=== PATIENT | female | born 1990 | race Hispanic/Latino ===

== ENCOUNTER 2018-11-25 09:35 | Inpatient (IN) | payer OTHER ==
--- OUTSIDE RECORDS SUMMARY | 2018-11-25 09:37 | XMS REPORT ---
:1990 Author Organization [employer] Care Team Providers Name Role Phone Fatimah Sin Provider Role Unavailable Allergies No Known Allergies Problems Problem Type Condition Code Onset Dates Condition Status Problem BMI 35.0-35.9,adult Z68.35 Active Problem care, subsequent Z34.82 Active in second trimester Problem care in second trimester Z34.92 Active Assessment care in second trimester Z34.92 Active Medications No Known Medications Results No Known Results Summary Purpose [employer] Submission
--- OUTSIDE RECORDS SUMMARY | 2018-11-25 09:37 | XMS REPORT ---
:1990 Author Organization [employer] Care Team Providers Name Role Phone See Dawkins Provider Role Unavailable Allergies No Known Allergies Problems Problem Type Condition Code Onset Dates Condition Status Problem BMI 35.0-35.9,adult Z68.35 Active Problem care, subsequent Z34.82 Active in second trimester Problem care in second trimester Z34.92 Active Assessment BMI 35.0-35.9,adult Z68.35 Active Assessment care in second trimester Z34.92 Active Medications No Known Medications Results No Known Results Summary Purpose [employer] Submission
--- OUTSIDE RECORDS SUMMARY | 2018-11-25 09:37 | XMS REPORT ---
:1990 Author Organization [employer] Care Team Providers Name Role Phone Fatimah Sin Provider Role Unavailable Allergies No Known Allergies Problems Problem Type Condition Code Onset Dates Condition Status Problem care, subsequent Z34.82 Active in second trimester Problem Encounter for supervision of other Z34.81 Active normal in first trimester Problem BMI 35.0-35.9,adult Z68.35 Active Assessment BMI 35.0-35.9,adult Z68.35 Active Assessment care, subsequent Z34.82 Active in second trimester Medications No Known Medications Results No Known Results Summary Purpose [employer] Submission
--- OUTSIDE RECORDS SUMMARY | 2018-11-25 09:37 | XMS REPORT ---
:1990 Author Organization [employer] Care Team Providers Name Role Phone Fatimah Sin Provider Role Unavailable Allergies No Known Allergies Problems Problem Type Condition Code Onset Dates Condition Status Problem BMI 35.0-35.9,adult Z68.35 Active Problem care, subsequent Z34.82 Active in second trimester Problem care in second trimester Z34.92 Active Medications No Known Medications Results No Known Results Summary Purpose [employer] Submission
--- OUTSIDE RECORDS SUMMARY | 2018-11-25 09:38 | XMS REPORT ---
:1990 Author Organization [employer] Care Team Providers Name Role Phone See Dawkins Provider Role Unavailable Allergies No Known Allergies Problems Problem Type Condition Code Onset Dates Condition Status Problem BMI 35.0-35.9,adult Z68.35 Active Problem care, subsequent Z34.82 Active in second trimester Assessment Gestational diabetes mellitus (GDM) O24.415 Active in third trimester controlled on oral hypoglycemic drug Assessment Supervision of high risk O09.93 Active in third trimester Problem Gestational diabetes mellitus (GDM) O24.415 Active in third trimester controlled on oral hypoglycemic drug Problem Gestational diabetes mellitus (GDM) O24.419 Active in third trimester, gestational diabetes method of control unspecified Problem Supervision of high risk O09.93 Active in third trimester Problem Supervision of high risk O09.92 Active in second trimester Problem care in second trimester Z34.92 Active Problem Abnormal glucose affecting O99.810 Active Problem Needs flu shot Z23 Active Medications Medication Code Code Instructions Start End Status Dosage System Date Date Ferralet 90 [facility] 54400097645 90-1 MG Orally Active 1 tablet Once a day Glucometer ND 0 n/s n/s use as Active one directed Lancets [facility] 71202782563 - four times a Active as directed day GlyBURIDE [facility] 31049655409 2.5 MG Orally Active 1 tablet Once a day with breakfast or the first main meal of the day Glucose [facility] [address]-06 n/s n/s Four Active n/s testing times a day strips Results No Known Results Immunizations Vaccine Administration Date TDAP > 7 Years-Adacel Nov 06, 2018 Summary Purpose [employer]ClinicalWorks Submission
--- OUTSIDE RECORDS SUMMARY | 2018-11-25 09:38 | XMS REPORT ---
[...] Start End Status Dosage System Date Date Lancets [facility] 59784767908 - four times a Active as directed day Ferralet 90 [facility] 36549996151 90-1 MG Orally Active 1 tablet Once a day Glucose [facility] [address]-31 n/s n/s Four Active n/s testing times a day strips Glucometer [facility] 0 n/s n/s use as Active one directed GlyBURIDE [facility] 40820314381 2.5 MG Orally Active 1 tablet Once a day with breakfast or the first main meal of the day Results No Known Results Summary Purpose [employer]Works Submission
--- OUTSIDE RECORDS SUMMARY | 2018-11-25 09:38 | XMS REPORT ---
:1990 Author Organization [employer] Care Team Providers Name Role Phone See Dawkins Provider Role Unavailable Allergies No Known Allergies Problems Problem Type Condition Code Onset Dates Condition Status Problem BMI 35.0-35.9,adult Z68.35 Active Problem care, subsequent Z34.82 Active in second trimester Problem Gestational diabetes mellitus (GDM) O24.415 [...] Problem Needs flu shot Z23 Active Medications No Known Medications Results No Known Results Summary Purpose [employer]ClinicalWorks Submission
--- OUTSIDE RECORDS SUMMARY | 2018-11-25 09:38 | XMS REPORT ---
[...] End Status Dosage System Date Date Lancets [facility] [id number] - four times a Active as directed day Ferralet 90 [facility] 71246060739 90-1 MG Orally Active 1 tablet Once a day Glucose [facility] [address]-35 n/s n/s Four Active n/s testing times a day strips Glucometer [facility] 0 n/s n/s use as Active one directed GlyBURIDE [facility] 90107415745 2.5 MG Orally Active 1 tablet Once a day with breakfast or the first main meal of the day Results No Known Results Summary Purpose [employer]ClinicalWorks Submission
[2018-11-25] MEDS ORDERED: CARBOPROST TROME 250 MCG/ML IM PRN (10:17)
[2018-11-25] MEDS ORDERED: METHYLERGONOVINE 0.2MG/ML AMP IM PRN (10:17)
[2018-11-25] MEDS ORDERED: Ringers Lactate 1,000 ML IV PRN (10:17)
[2018-11-25] MEDS ORDERED: LIDOCAINE 2% 20 ML MDV IV ONE (10:19)
[2018-11-25 10:49] LABS: RPR Titer ND
[2018-11-25 10:53] LABS: Absolute Monocytes 0.5 K/uL (0.1-1.3); Basophils % 0.3 % (0-1.3); Eosinophils % 0.4 % (0-4.4); Lymphocytes % 20.6 % (15.3-44.8); MPV 9.2 fL (7.6-11.3); Monocytes % 5.6 % (3.3-12.3); RBC Red Blood Cell Count 4.58 M/uL (3.86-4.86)
[2018-11-25] MEDS ORDERED: OXYTOCIN/LR 20 UNIT/1,000 ML BAG IV SCH (11:00)
[2018-11-25] MEDS ORDERED: Ringers Lactate 1,000 ML IV SCH (11:00)
[2018-11-25 14:07] VITALS: BMI 39.8
[2018-11-25] MEDS ORDERED: FENTANYL CITR 100 MCG/2 ML IV ONE (16:08)
[2018-11-25] MEDS ORDERED: ROPIVACAINE HCL 100 ML IV PRN (16:08)
[2018-11-25] MEDS ORDERED: ROPIVACAINE HCL 0.2% 20ML AMP SQ ONE (16:09)
[2018-11-25 20:53] LABS: RPR (Rapid Plasma Reagin) NON-REACT (NON-REACT)
[2018-11-25] MEDS ORDERED: DOCUSATE NA/SENNA CONC 1 TAB PO PRN (21:37)
[2018-11-25] MEDS ORDERED: METHYLERGONOVINE 0.2 MG TAB PO PRN (21:37)
[2018-11-25] MEDS ORDERED: BISACODYL 10 MG RECTAL SUPP RECT PRN (21:37)
[2018-11-25] MEDS ORDERED: ACETAMINOPHEN 500 MG TAB PO PRN (21:37)
[2018-11-25] MEDS ORDERED: ONDANSETRON 4 MG (ODT) TAB PO PRN (21:37)
[2018-11-25] MEDS ORDERED: Oxycodone HCl/Acetaminophen 1 TAB TAB PO PRN (21:37)
[2018-11-25] MEDS ORDERED: IBUPROFEN 200 MG TAB PO PRN (21:37)
--- NOTE | 2018-11-25 21:50 | P.OP ---
Date of Service: 11/25/18 Findings and Operative Technique Patient delivered a viable male in cephalic presentation on 11/25/18 at _ ____. was delivered over a midline episiotomy. Once the head was delivered shoulder dystocia was encountered. Ángel was performed. The posterior shoulder was then delivered. Once that was done the infant was delivered. Nose and mouth were suctioned with a suction bulb. Cord was clamped and cut and was handed off to nursery nurse. Attention was then turned to the placenta APGARS were 8/9. Weight was 9 lbs 10 ounces.
[2018-11-25] MEDS ORDERED: KETOROLAC 30 MG/ML INJ ONE (22:38)
[2018-11-26 04:52] LABS: Absolute Lymphocytes (CBC) 0.8 K/uL (0.7-4.9); Absolute Neutrophil 16.1 K/uL (1.8-8.0); Basophils % 0.2 % (0-1.3); Hematocrit 32.8 % (36.0-45.0); Lymphocytes % 4.4 % (15.3-44.8); MPV 9.6 fL (7.6-11.3); Monocytes % 5.7 % (3.3-12.3); RBC Red Blood Cell Count 4.16 M/uL (3.86-4.86)
[2018-11-26 05:14] LABS: Blood Morphology Comment NOT SEEN (NOT SEEN); Platelet Estimate ADEQ; Urine White Blood Cell Casts OK
--- NOTE | 2018-11-26 05:26 | HP ---
Date of Admission: 11/25/2018 History: Ana is a 28-year-old 2, para 1-0-0-1, at 39 weeks gestation, who presented to Lab or and Delivery with spontaneous rupture of membranes. The patient has been having watery discharge since last night. She presented to Labor and Delivery this morning, at which time she was found to b e grossly ruptured and was noted to be 2 cm dilated. The patient has obtained care with md beginning at 9 weeks gestation. She was seeing Dr. Sin prior to her departure. She has been compli ant with all visits. She has been a high-risk due to the development of gestation al diabetes and being obese with a BMI greater than 35. Her gestational diabetes has been controlled with 2.5 mg of glyburide at bedtime. She has been seeing an MFM for this as well. He rec ommended delivery at 39 weeks gestation. The patient was scheduled for induction of labor tomorrow; however, she presented in labor today. Past Medical History: Negative. Past Surgical History: Negative. [employer] History: Includes normal Pap smears. Regular menstrual cycles. No issues. Ob History: Includes 1 prior vaginal delivery. was 8 pounds 8 ounces. Family History: Noncontributory. Social History: She is with the father of the baby. Denies tobacco, alcohol, or drug use. Allergies: SHE HAS NO KNOWN DRUG ALLERGIES. Physical Examination: Vital Signs: On admission, blood pressure is 105/69, pulse of 83, respirations 18, temperature is 97 .7. General: Patient is resting comfortably in bed, in mild pain distress. Head and Neck: Normocephalic, atraumatic. Neck is supple. Heart: Regular rate and rhythm. Respirations: Symmetric, nonlabored breathing. Abdomen: Gravid. Extremities: Bilateral lower extremities, no clubbing, cyanosis, or edema. Vaginal Exam: 2-3 cm dilated, 50% effaced, -3 station. Vertex presentation. Clear fluid noted. [place] Heart Rate Monitoring: Baseline heart rate is 140, moderate variability, category 2 tracin g. [place]: Contractions every 3 to 5 minutes. Labs: Pending. Assessment And Plan: Ana is a 28-year-old 2, para 1-0-0-1, who presents at 39 weeks gestat ion in active labor. care is complicated by gestational diabetes, for which she has been ta heather glyburide. Plan is to admit the patient. Epidural placement at patient's request. We will beg in Pitocin for labor augmentation. Continuous maternal monitoring will be performed. We will re-evaluate fingersticks as necessary. Anticipate vaginal . GBS negative. Will not need penic illin. /ASUNCION Voice ID: [id number]
[2018-11-26] MEDS: Oxycodone HCl/Acetaminophen 1 TAB TAB PO PRN ×2 (05:50→23:30)
[2018-11-26] MEDS ORDERED: ACETAMINOPHEN 325 MG TABLET PO PRN (17:53)
[2018-11-26] MEDS: DOXYCYCLINE 100 MG CAP PO SCH (18:14)
[2018-11-26 18:24] LABS: Absolute Lymphocytes (CBC) 0.5 K/uL (0.7-4.9); Absolute Monocytes 0.4 K/uL (0.1-1.3); Absolute Neutrophil 11.6 K/uL (1.8-8.0); Basophils % 0.2 % (0-1.3); Hematocrit 32.8 % (36.0-45.0); Lymphocytes % 3.9 % (15.3-44.8); MPV 9.2 fL (7.6-11.3); Monocytes % 3.3 % (3.3-12.3); RBC Red Blood Cell Count 4.14 M/uL (3.86-4.86)
--- NOTE | 2018-11-26 22:01 | P.PN ---
Date of Service: 11/26/18 Patient seen and examined at bedside. States she is doing well. She was able to tolerate a regular diet this morning. Postprandial glucose level is pending. She is bonding well with the baby. She is breast feeding. Her pain is well managed. She states her bleeding is mild. She denies shortness of breath, no chills, no fever. Selected Entries 11/26/18 07:53 Temperature 98.3 F Pulse Rate 97 H Respiratory 16 Rate Blood Pressure 115/69 Pain Level 0 Laboratory Tests 11/26/18 04:05 WBC 18.0 H D Hgb 10.6 L Hct 32.8 L Plt Count 207 GEN: resting comfortably is bed with family at bedside. Head/Neck: NCAT/supple Heart: RRR Resp: symmetric non-labored breathing ABD: soft, non-tender, non-distended, fundus firm palpable below umbilicus. A/P: Patient is s/p vaginal delivery complicated by shoulder dystocia. care complicated by gestational diabetes. Patient is doing well. She is recovering well. Glucose level ordered. Will follow. Plan to discharge home in the morning.
[2018-11-27 04:28] LABS: HBsAG Nonreactive (Nonreactive)
[2018-11-27] MEDS: Oxycodone HCl/Acetaminophen 1 TAB TAB PO PRN (06:30)
[2018-11-27] MEDS: DOXYCYCLINE 100 MG CAP PO SCH (06:40)
[2018-11-27 08:53] VITALS: BP 121/74; TEMP 97.7
[2018-11-27] MEDS ORDERED: MEASLES,MUMPS,RUBELLA VAC 0.5ML SQVAC ONE (10:29)
== END 2018-11-27 11:35 | disposition home or self-care (01) | DRG 833 ==
LOC: L&D 09:35 → 2ND-WC 10:10
PROVIDERS: ADMIT Student in an Organized Health Care Education/Training Program; ATTEND Student in an Organized Health Care Education/Training Program
PROC: 0W8NXZZ Division of Female Perineum, External Approach (ICD-10-PCS; principal; 2018-11-25)
DX: O66.0 Obstructed labor due to shoulder dystocia (principal); O24.425 Gestational diabetes mellitus in childbirth, controlled by oral hypoglycemic drugs; O99.214 Obesity complicating childbirth; Z3A.39 39 weeks gestation of pregnancy; Z37.0 Single live birth
CPT/HCPCS: 36415; 82947; 82962; 85025; 86592; 86850; 86900; 86901; 87340; 88307; 90707; J2210; J2590; J2795; J3010

== ENCOUNTER 2020-06-18 12:24 | Emergency (ER) | payer OTHER ==
--- OUTSIDE RECORDS SUMMARY | 2020-06-18 13:00 | XMS REPORT | Clinical Summary ---
:1990 Author Organization [facility] Address [address] [place] [address] Care Team Providers Name Role Phone Asked, No Pcp Primary Care Provider Unavailable Allergies No Known Allergies Medications Medication Sig Dispensed Refills Start Date End Date Status doxylamine-pyridoxi Take 2 tablets 60 tablet 6 03/09/2020 Active ne, vit B6, by mouth (Diclegis) 10-10 mg nightly. tablet,delayed release (DR/EC) delayed release tablet famotidine (Pepcid) Take 1 tablet 30 tablet 11 04/08/202004/08 Active 40 MG tablet (40 mg total) 1 by mouth daily. nitrofurantoin 0 04/11/2020 Acti ve (MACRODANTIN) 100 MG capsule lancets Use as 100 each 1 05/25/2020 Active miscIndications: prescribed. Diet controlled gestational diabetes mellitus (GDM) in second trimester blood-glucose meter Use as 1 each 0 05/25/2020 Active kitIndications: instructed Diet controlled gestational diabetes mellitus (GDM) in second trimester blood sugar Use as directed 100 strip 1 05/25/2020 A ctive diagnostic strips (glucose blood) strip test stripsIndications: Diet controlled gestational diabetes mellitus (GDM) in second trimester nitrofurantoin, Take 1 capsule 14 capsule 0 03/11/2020 02 macrocrystal-monohy (100 mg total) 0 drate, (MACROBID) by mouth 2 100 MG capsule (two) times a day for 7 days. ondansetron ODT Take 1 tablet 30 tablet 0 04/08/2020 (ZOFRAN-ODT) 8 MG (8 mg total) by 0 disintegrating mouth every 8 tablet (eight) hours as needed for nausea or vomiting for up to 30 days. nitrofurantoin, Take 1 capsule 14 capsule 0 04/11/202004/18/ 02 macrocrystal-monohy (100 mg total) 0 drate, (MACROBID) by mouth 2 100 MG capsule (two) times a day for 7 days. Freestyle [employer] Test daily in 100 strip 3 05/06/2020 Discontinued strip test strips the morning and 0 2 hours after all 3 meals lancets (freestyle) Test daily in 100 each 2 05/06/202005/25 Discontinued 28 gauge misc the morning and 0 2 hours after all 3 meals. Active Problems Problem Noted Date Diet controlled gestational diabetes mellitus (GDM) in second trimester 05/06/2020 Estimated Date of Delivery Comments Yes 10/11/2020 Based on Ultrasound Encounters Date Type Specialty Care Team Description 06/03/2020 Routine Obstetrics and Ivory Eli GA: 21 w3d Sobeida Pratt MD 06/03/2020 Travel 06/03/2020 Orders Only Ivory Krishnamurthy MD 06/01/2020 Travel 05/31/2020 Telephone Ivory Krishnamurthy MD 05/27/2020 Telephone Ivory Krishnamurthy MD 05/25/2020 Orders Only Obstetrics Ivory Fair Diet contr olled Sobeida Pratt MD gestational diabetes mellit us (GDM) in second trimester (Prim john Dx) 05/06/2020 Telemedicine Obstetrics and Ivory Eli Normal pre gnancy in second trimester (Primary Dx); Sobeida Pratt MD Diet controlled gestational diabetes mellitus (GDM) in second trimester 05/06/2020 Telephone Obstetrics and Sakina Rice, Gynecology [place] 04/30/2020 Travel 04/20/2020 Telephone Obstetrics Sakina Nettles, care in Gynecology [place] second trimeste r (Primary Dx) 04/11/2020 Orders Only Ivory Krishnamurthy MD 04/08/2020 Routine Obstetrics and Ivory Eli GA: 13 w3d Sobeida Pratt MD 04/08/2020 Travel 04/07/2020 Telephone Ivory Krishnamurthy MD 04/05/2020 Orders Only Obstetrics and Ivory Eli MD 03/11/2020 Orders Only Obstetrics and Ivory Eli Gynecology MD [place] 03/09/2020 Ancillary Procedure Obstetrics and Ivory Eli Pos itive Gynecology MD [place] test 03/09/2020 Office Visit Obstetrics and Ivory Eli Missed men ses (Primary Dx); Gynecology MD [place] Positive pregna ncy test; Nausea; H/O gestational diabetes in prior , currently 03/09/2020 Travel 03/02/2020 Travel 03/02/2020 Telephone Obstetrics and Ivory Eli Gynecology MD [place] after 06/18/2019 Family History Medical History Relation Name Comments Breast cancer Neg Hx Ovarian cancer Neg Hx Social History Tobacco Use Types Packs/Day Years Used Date Never Smoker Smokeless Tobacco: Never Used Alcohol Use Drinks/Week oz/Week Comments Never Alcohol Habits Answer Date Recorded How often do you have a drink containing alcohol? Never 03/09/2020 How many drinks containing alcohol do you have on a typical Not asked day when you are drinking? How often do you have six or more drinks on one occasion? No t asked Estimated Date of Delivery Comments Yes 10/11/2020 Based on Ultrasound Sex Assigned at Date Recorded Not on file Job Start Date Occupation Industry Not on file Not on file Not on file Travel History Travel Start Travel End No recent travel history available. COVID-19 Exposure Response Date Recorded In the last month, have you been in contact with No / Unsure 06/03/2020 1:18 PM CDT someone who was confirmed or suspected to have Coronavirus / COVID-19? Last Filed Vital Signs Vital Sign Reading Time Taken Comments Blood Pressure 114/73 06/03/2020 2:07 PM CDT Pulse 81 03/09/2020 1:49 PM CDT Temperature - - Respiratory Rate - - Oxygen Saturation - - Inhaled Oxygen Concentration - - Weight 88.9 kg (196 lb) 06/03/2020 2:07 PM CDT Height 152.4 cm (5') 03/09/2020 1:49 PM CDT Body Mass Index 38.28 03/09/2020 1:49 PM CDT Plan of Treatment Date Type Specialty Care Team Description 07/01/2020 Routine Obstetrics and Ivory Eli MD [address] [facility] [address] [place], [place] [address] [phone] Health Maintenance Due Date Last Done Comments DIABETIC RETINAL EYE EXAM 1992 DIABETIC FOOT EXAM 02/18/2002 URINE MICROALBUMIN 02/18/2002 CERVICAL CANCER SCREENING 02/18/2013 INFLUENZA VACCINE 07/06/2020 09/02/2018 Procedures Procedure Name Priority Date/Time Associated Comments Diagnosis US OB DETAIL Routine 06/03/2020 Results f or this ANATOMY SINGLE OR procedure are in FIRST GESTATION the results section. MATERNAL SERUM SCREEN Routine 05/27/2020 12:18 Normal pregnanc y in Results for this AFP [facility] PM CDT second trimester procedure a re in the results section. GLUCOSE TOLERANCE, 3 Routine 04/23/2020 8:04 care in Results for this HOURS AM CDT second trimester procedure a re in the results section. GESTATIONAL DIABETES Routine 04/19/2020 9:49 care, R esults for this SCREEN AM CDT antepartum procedure are i n the results section. URINE CULTURE Routine 04/08/2020 1:39 care, Results for this PM CDT antepartum procedure are i n the results section. FIRST TRIMESTER Routine 04/05/2020 Results for this SCREEN procedure are i n the results section. MICROSCOPIC Routine 03/09/2020 4:15 Results for this EXAMINATION PM CDT procedure are i n the results section. URINALYSIS, AUTOMATED Routine 03/09/2020 4:15 Re sults for this WITH MICROSCOPY PM CDT procedure ar e in the results section. CHLAMYDIA/GC, [place] Routine 03/09/2020 4:15 Positive Results for this PM CDT test procedure are i n the results section. URINE CULTURE Routine 03/09/2020 4:15 Positive Resu lts for this PM CDT test procedure are i n the results section. T4, FREE Routine 03/09/2020 2:54 Positive Resul ts for this PM CDT test procedure are i n the results section. THYROID STIMULATING Routine 03/09/2020 2:54 Positive pregnanc y Results for this HORMONE PM CDT test procedure are i n the results section. HEMOGLOBIN A1C Routine 03/09/2020 2:54 Positive Res ults for this PM CDT test procedure are i n the results section. OBSTETRIC PANEL Routine 03/09/2020 2:54 Positive Re sults for this PM CDT test procedure are i n the results section. US PELVIC Routine 03/09/2020 2:04 Positive Resul ts for this TRANSVAGINAL PM CDT test procedure are i n the results section. after 06/18/2019 Results Ultrasound OB detail anatomy single or first gestation (06/03/2020) Narrative Performed At This result has an attachment that is no t available. Maternal serum screen AFP [facility] (05/27/2020 12:18 PM CDT) Results: Report [facility] Test Results *Screen Negative* [facility] Gest. Age on 20.0 weeks [facility] collection date Gest. age based on As provided [facility] Comment: Recalculations are not recommended when gestational da ting by LMP and ultrasound are within 10 days. [age] [facility] Maternal race Other [facility] Weight 191 lbs [facility] Insulin Dep Diabetes No [facility] Multiple gestation No [facility] Alpha fetoprotein 40.2 ng/mL [facility] Mom for AFP 0.84 [facility] OSBR Risk 10,000 [facility] AFP interpretation Comment [facility] Comment: Interpretation: Screen Negative This result is screen negative for OSB. The AFP MoM calculated is based on the gestational age provided. MS-AFP can i dentify up to 80% of open neural tube defects. Closed neural t ube defects and some open defects may not be detected by this test. Th is test does not screen for Down Syndrome or Trisomy 18. If s creening for Down Syndrome or Trisomy 18 is desired, contact [employer] Customer Services to discuss available options. The [employer] recommends amniocentes is be offered to women age 35 and older. Comment Comment [facility] Comment: Patrizia Farah, Ph.D., [facility] Director References: Available Upon Request. Multiples Of Median Cutoffs For AFP Elevations Crews 2.5 Black 2.8 IDD 2.0 Twins 4.5 Abbreviation Definitions IDD - Insulin Dep Diabetes OSBR - Open Spina Bifida Risk For further inquiries contact [employer] [facility] at [phone]. Specimen Blood Narrative Performed At Performed at: - [facility] [address] [facility], [place] [address] [id number] Radiagraph Operator: Ky Roman [facility], Phone: [phone] Performing Organization Address City/State/Zipcode Phone Number [facility] Glucose tolerance, 3 hours (04/23/2020 8:04 AM CDT) Glucose, fasting 84 65 - 94 mg/dL [facility] Glucose, 1 hour 186 (H) 65 - 179 mg/dL [facility] Glucose, 2 hour 164 (H) 65 - 154 mg/dL [facility] Glucose, 3 hour 105 65 - 139 mg/dL [facility] Note: Comment [facility] Comment: For diagnosis of gestational diabetes, at least two va lues must meet or exceed normal limits, which is based on 100 gm of o ral glucose challenge. Specimen Blood Narrative Performed At Performed at: [address] [place] [address] [id number] Radiagraph Operator: Lino Duarte MD, Phone: [phone] Performing Organization Address [facility] Phone Number [facility] Gestational Diabetes Screen (04/19/2020 9:49 AM CDT) Gestational 192 (H) 65 - 139 [facility] diabetes screen Comment: mg/dL According to ADA, a glucose threshold of >139 mg/dL af ter 50-gram load identifies approximately 80% of women with gestat ional diabetes mellitus, while the sensitivity is further in creased to approximately 90% by a threshold of >129 mg/dL. Specimen Blood Narrative Performed At Performed at: [address] [place] [address] [id number] Radiagraph Operator: Lino Duarte MD, Phone: [phone] Performing Organization Address [facility] Phone Number [facility] Urine culture (04/08/2020 1:39 PM CDT)Only the most recent of2 resultswithin the time period is included. Pathologist Sig nature Urine culture Enterococcus faecalis [facility] 50,000-100,000 colony forming units per mL (A) Comment: Note: this isolate is vancomycin-susceptible. This information is provided for epidemiologic purpose s only: vancomycin is not among the antibiotics recommended fo r therapy of urinary tract infections caused by Enterococcus. For Enterococcus species, aminoglycosides (except for high-level resistance screening), cephalosporins, clindamycin, an d trimethoprim-sulfamethoxazole are not effective clinic ally. (CLSI, [id number], 2016) Urine culture Escherichia coli [facility] 10,000-25,000 colony forming units per mL (A) Comment: Cefazolin <=4 ug/mL Cefazolin with an AMOL <=16 predicts susceptibility to the oral agents cefaclor, cefdinir, cefpodoxime, cefprozil, cefuroxime , cephalexin, and loracarbef when used for therapy of uncomplicated urinary tract infections due to E. coli, Klebsiella pneumoniae, and Proteus mirabilis. Specimen Urine Narrative Performed At Performed at: [address] [place] [address] 143 Radiagraph Operator: Lino Duarte MD, Phone: [phone] Organism Antibiotic Method Susceptibility Enterococcus faecalis Ciprofloxacin S ug/mL: S usceptible Enterococcus faecalis Levofloxacin S ug/mL: S usceptible Enterococcus faecalis Nitrofurantoin S ug/mL: S usceptible Enterococcus faecalis Penicillin S ug/mL: S usceptible Enterococcus faecalis Tetracycline R ug/mL: R esistant Enterococcus faecalis Vancomycin S ug/mL: S usceptible Comment: Performed at: [address] [place] [id number] Radiagraph Operator: Lino Duarte MD, Phone: [phone] Escherichia coli Amoxicillin/Clavulanate S ug/mL : Susceptible Escherichia coli Ampicillin R ug/mL: Resist ant Escherichia coli Cefepime S ug/mL: Suscep tible Escherichia coli Ceftriaxone S ug/mL: Suscep tible Escherichia coli Cefuroxime S ug/mL: Suscep tible Escherichia coli Ciprofloxacin S ug/mL: Suscep tible Escherichia coli Ertapenem S ug/mL: Suscep tible Escherichia coli Gentamicin S ug/mL: Suscep tible Escherichia coli Imipenem S ug/mL: Suscep tible Escherichia coli Levofloxacin S ug/mL: Suscep tible Escherichia coli Meropenem S ug/mL: Suscep tible Escherichia coli Nitrofurantoin S ug/mL: Suscep tible Escherichia coli Piperacillin/Tazobactam S ug/mL : Susceptible Escherichia coli Tetracycline S ug/mL: Suscep tible Escherichia coli Tobramycin S ug/mL: Suscep tible Escherichia coli Trimethoprim/Sulfamethoxazole S ug/mL: Susceptible Comment: Performed at: [address] [place] [address] 143 Radiagraph Operator: Lino Duarte MD, Phone: [phone] Performing Organization Address [facility] Phone Number [facility] First trimester screen (04/05/2020) Specimen Blood Narrative Performed At This result has an attachment that is no t available. Microscopic Examination (03/09/2020 4:15 PM CDT) Pathologist Sig nature WBC, UA None seen 0 - 5 /hpf [facility] RBC, UA 0-2 0 - 2 /hpf [facility] Epithelial cells (non 0-10 0 - 10 /hpf [facility] renal) Mucus, UA Present Not Estab. [facility] Bacteria, UA Few None seen/Few [facility] Specimen Narrative Performed At Performed at: - [address] [id number] Radiagraph Operator: Lino Duarte MD, Phone: [phone] Performing Organization Address [facility] Phone Number [facility] Chlamydia/GC, [place] (03/09/2020 4:15 PM CDT) Pathologist Sig nature Chlamydia trachomatis, [place] Negative Negative [facility] Neisseria gonorrhoeae, [place] Negative Negative [facility] Specimen Urine Narrative Performed At [facility]formed [facility]: [facility] [address] [facility], [place] [id number] Radiagraph Operator: Sherry Hargrove MD, Phone: [phone] Performing Organization Address City/[facility] Phone Number [facility] Urinalysis, automated with microscopy (03/09/2020 4:15 PM CDT) Specific gravity, 1.014 1.005 - 1.030 [facility] urine pH, urine 7.5 5.0 - 7.5 [facility] Color, UA Yellow Yellow [facility] Appearance Clear Clear [facility] WBC esterase, urine Negative Negative [facility] Protein, UA Negative Negative/Trace [facility] Glucose, urine Negative Negative [facility] Ketones, UA Negative Negative [facility] Occult blood, urine Negative Negative [facility] Bilirubin, UA Negative Negative [facility] Urobilinogen, UA 0.2 0.2 - 1.0 mg/dL [facility] Nitrite, UA Positive (A) Negative [facility] Microscopic See below:Comment: [facility] examination Microscopic was indicated and was performed. Specimen Narrative Performed At Performed at: 01 [facility] [address] [place], [place] [address] 143 Radiagraph Operator: Lino Duarte MD, Phone: [phone] Performing Organization Address City/State/Zipcode Phone Number [facility] Obstetric panel (03/09/2020 2:54 PM CDT) Hepatitis B surface Negative Negative [facility] Ag RPR Non Reactive Non Reactive [facility] Rubella IgG antibody 1.42 Immune >0.99 [facility] Comment: index Non-im mune <0.90 Equivo juvencio 0.90 - 0.99 Immune >0.99 ABO grouping O [facility] Rh type Positive [facility] Comment: Please note: Prior records for this patient's ABO / Rh type are not available for additional verification. Antibody screen Negative Negative [facility] HIV AG/AB 4th gen Non Reactive Non Reactive [facility] WBC 11.8 (H) 3.4 - 10.8 [facility] x10E3/uL RBC 4.41 3.77 - 5.28 [facility] x10E6/uL HGB 12.5 11.1 - 15.9 g/dL [facility] HCT 38.3 34.0 - 46.6 % [facility] MCV 87 79 - 97 fL [facility] MCH 28.3 26.6 - 33.0 pg [facility] MCHC 32.6 31.5 - 35.7 g/dL [facility] RDW 13.2 11.7 - 15.4 % [facility] Platelet count 382 150 - 450 [facility] x10E3/uL Neutrophils 69 Not Estab. % [facility] Lymphocytes 25 Not Estab. % [facility] Monocytes 5 Not Estab. % [facility] Eosinophils 0 Not Estab. % [facility] Basophils 0 Not Estab. % [facility] Neutrophils, 8.2 (H) 1.4 - 7.0 [facility] absolute x10E3/uL Lymphocytes, 2.9 0.7 - 3.1 [facility] absolute x10E3/uL Monocytes, absolute 0.6 0.1 - 0.9 [facility] x10E3/uL Eosinophils, 0.0 0.0 - 0.4 [facility] absolute x10E3/uL Basophils, absolute 0.0 0.0 - 0.2 [facility] x10E3/uL Immature 1 Not Estab. % [facility] granulocytes Immature grans (abs) 0.1 0.0 - 0.1 [facility] x10E3/uL Specimen Blood Narrative Performed At Performed at: [address] [place] [id number] Radiagraph Operator: Lino Duarte MD, Phone: [phone] Performing Organization Address [facility] Phone Number [facility] Thyroid stimulating hormone (03/09/2020 2:54 PM CDT) Pathologist Sig [facility] TSH 0.749 0.450 - 4.500 uIU/mL [facility] Specimen Blood Narrative Performed At Performed at: [address] [place] [id number] Radiagraph Operator: Lino Duarte MD, Phone: [phone] Performing Organization Address [facility] Phone Number [facility] T4, free (03/09/2020 2:54 PM CDT) Pathologist Sig [facility] T4, free 1.28 0.82 - 1.77 ng/dL [facility] Specimen Blood Narrative Performed At Performed at: [address] [place] [address] [id number] Radiagraph Operator: Lino Duarte MD, Phone: [phone] Performing Organization Address [facility] Phone Number [facility] Hemoglobin A1c (03/09/2020 2:54 PM CDT) Pathologist [facility] Hemoglobin A1C 5.4 4.8 - 5.6 % [facility] Comment: Prediabetes: 5.7 - 6.4 Diabetes: >6.4 Glycemic control for adults with diabetes : <7.0 Specimen Blood Narrative Performed At Performed at: [address] [place] [id number] Radiagraph Operator: Lino Duarte MD, Phone: [phone] Performing Organization Address [facility] Phone Number [facility] US Pelvic Transvaginal (03/09/2020 2:04 PM CDT) Specimen Narrative Performed At This result has an attachment that is no t available. LMP: 11/30/2019 HM [facility] LMP -- GA: 14w2d FREDY: 09/05/2020 AUA-- GA: 9w1d FREDY: 10/11/2020 CRL: 2.39 cm FHR: 177bpm Yolk sac seen: Yes Gestational Sac: good Corpus Luteum: HE sIUP at 9w1d, +FHT Ivory Eli MD Performing Organization Address City/State/Zipcode Phone Number [facility] [address] [place] [address] after 06/18/2019 Insurance Payer Benefit Plan / Subscriber ID Effective Dates Phone Addre ss Type Group Génie [employer] [facility] xxxxxxxxx 2020-Present HMO CHOICE [employer] Advance Directives For more information, please contact: [phone] Type Date Recorded Patient Hematology Supervisor Explanati on Advance Directives, Living Will and Medical Power of College Admissions Counselor
--- OUTSIDE RECORDS SUMMARY | 2020-06-18 13:01 | XMS REPORT | Continuity of Care Document ---
:1990 Author Organization [facility] t Address [address] [place] [address] Care Team Providers Name Role Phone Asked, Pcp Primary Care Physician Unavailable Santa Eli MD Attending Clinician Dwayne CONTRERAS Attending Clinician Unavailable Payers Payer Name Policy Type Policy Number Effective Date Expiration Date S abdi [facility] xxxxxxxxx 2020 [facility] 00:00:00 Yazdanism [employer] [facility] [id number] O Problems Condition Condition Condition Status Onset Resolution Last Treating Co mments Source Name Details Category Date Date Treatment Clinician Date Diet Diet Disease Active [place] controlled controlled -02 Me thodi gestationa gestationa 00:00: st l diabetes l diabetes 00 mellitus mellitus (GDM) in (GDM) in second second trimester trimester [facility] subsequent subsequent Me moria l in second in second Outp ati trimester trimester ent Clinics BMI BMI Problem Active [facility] 35.0-35.9, 35.0-35.9, Gina kes - adult adult Memoria l Outpati ent Clinics Problem [facility] - second second Memoria trimester trimester l Outpati ent Clinics Gestationa Gestationa Problem Active [facility] diabetes l diabetes Gina kes - mellitus mellitus Memori a (GDM) in (GDM) in l third third Outpati trimester trimester ent controlled controlled Cl inics on oral on oral hypoglycem hypoglycem ic drug ic drug Supervisio Supervisio Problem Active [facility] of high n of high [facility] s - risk risk Memoria l in third in third Outpat i trimester trimester ent Clinics Gestationa Gestationa Problem Active [facility] l diabetes l diabetes Gina kes - mellitus mellitus Memori a (GDM) in (GDM) in l third third Outpati trimester, trimester, en t gestationa gestationa Cl inics l diabetes l diabetes method of method of control control unspecifie unspecifie d d Supervisio Supervisio Problem Active [facility] of high n of high Luke s - risk risk Memoria l in second in second Outp ati trimester trimester ent Clinics Abnormal Abnormal Problem [facility] glucose glucose [facility] - affecting affecting [place] alma rosa l Outpati ent Clinics Needs flu Needs flu Problem Active [facility] shot shot [facility] - [facility] Outpat[facility] ent Clinics Encounter Encounter Problem Active [facility] for for [facility] - routine routine Memoria l follow-up follow-up Outp ati ent Clinics Allergies, Adverse Reactions, Alerts This patient has no known allergies or adverse reactions. Family History Family Member Diagnosis Comments Start Date Stop Date Source Family member Breast cancer Oscar Kwon Family member Ovarian cancer [place] Yazdanism Social History Social Habit Start Date Stop Date Quantity Comments Source ASSERTION 2020-01-19 [place] Method ist 00:00:00 History SDOH [place] Meth odist Alcohol Std Drinks History [facility] Meth odist Alcohol Binge Sex Assigned At [facility] ethodist Exposure to Not sure [place] Metho dist SARS-CoV-2 (event) Alcohol intake 2020-06-03 2020-06-03 [facility] thodist 00:00:00 00:00:00 non-drinker (finding) History SDOH 2020-03-09 2020-03-09 1 [place] Meth odist Alcohol Frequency 00:00:00 00:00:00 Smoking Status Start Date Stop Date Source Never smoker [place] t Medications Ordered Filled Start Stop Current Ordering Indication Dosage Frequency Signature Comments Components Source Medication Medication Date Date Medication? Clinician (SIG) Name Name lancets Yes Diet Use as [place] misc 7- controlled prescribed Met hodi 00:00: gestational . st 00 diabetes mellitus (GDM) in second trimester blood-gluco Yes Diet Use as [place] se meter 05-25 controlled instructed Methodi kit 00:00: gestational st 00 diabetes mellitus (GDM) in second trimester blood sugar Yes Diet Use as [place] diagnostic 05-25 controlled directed Methodi strips 00:00: gestational st (glucose 00 diabetes blood) mellitus strip test (GDM) in strips second trimester Freestyle 2019-0 2020- No Test daily [place] [employer] 05-06 in the Methodi strip test 00:00: 00:[address] strips 00 :00 and 2 hours after all 3 meals lancets 2020- No Test daily Tommy ston (freestyle) 05-06 in the Metho di 28 gauge 00:00: 00:[address] misc 00 :00 and 2 hours after all 3 meals. nitrofurant 2019-0 Yes [place] o[place] -07 Methodi (MACRODANTI 00:00: st N) 100 MG 00 capsule nitrofurant 2020- No 100mg Q.5D Take 1 [place] oin, 04-11- capsule Methodi macrocrysta 00:00: 23:59 ([address] l-monohydra 00 :00 total) by te, mouth 2 (MACROBID) (two) 100 MG times a capsule day for 7 days. famotidine 2020- Yes 40mg QD Take 1 [place] (Pepcid) 40 6- 06-04 tablet (40 M ethodi MG tablet 00:00: 23:59 mg total) st 00 :00 by mouth daily. ondansetron 2020- No 8mg Q8H Take 1 [place] ODT - 07-04 tablet (8 Methodi (ZOFRAN-ODT 00:00: 23:59 mg total) st ) 8 MG 00 :00 by mouth disintegrat every 8 ing tablet (eight) hours as needed for nausea or vomiting for up to 30 days. nitrofurant 0 2020- No 100mg Q.5D Take 1 [place] oin, 03-11-14 capsule Methodi macrocrysta 00:00: 23:59 ([address] l-monohydra 00 :00 total) by te, mouth 2 (MACROBID) (two) 100 MG times a capsule day for 7 days. doxylamine- 2019- Yes 2{tbl} QD Take 2 [place] pyridoxine, 5-05 tablets by [facility] vit B6, 00:00: mouth st (Diclegis) 00 nightly. 10-10 mg tablet,clare yed release (DR/EC) delayed release tablet Loestrin 24 Loestrin 24 2018-0 Yes See [address] Fe Fe 3-04 [facility] - 00:00: [facility]oria 00 l [facility] Clin[facility] Immunizations Ordered Filled Immunization Date Status Comments [facility] Immunization Name Name TDAP > 7 TDAP > 7 2018-11-[address] [facility] - Years-Adacel Years-Adacel 00:00:00 [facility] Vital Signs Vital Name Observation Time Observation Value Comments Source Systolic blood 2020-06-03 14:07:00 114 mm[Hg] Diane oconnor Yazdanism pressure Diastolic blood 2020-06-03 14:07:00 73 mm[Hg] Srinivas Kwon pressure Body weight 2020-06-03 14:07:00 88.905 kg Oscar Kwon BMI 2020-06-03 14:07:00 38.28 kg/m2 Oscar Kwon Heart rate 2020-03-09 13:49:00 81 /min Oscar Kwon Body height 2020-03-09 13:49:00 152.4 cm Oscar Kwon Procedures Procedure Date / Time Performed Performing Clinician [facility] US OB DETAIL 2020-06-03 00:00:00 Ivory Eli ANATOMY SINGLE OR FIRST GESTATION MATERNAL SERUM SCREEN 2020-05-27 12:18:00 Ivory Eli AFP [facility] GLUCOSE TOLERANCE, 3 2020-04-23 08:04:00 Ivory Eli HOURS GESTATIONAL DIABETES 2020-04-19 09:49:00 Ivory Eli SCREEN URINE CULTURE 2020-04-08 13:39:00 Ivory Eli FIRST TRIMESTER SCREEN 2020-04-05 00:00:00 Ivory Eli URINE CULTURE 2020-03-09 16:15:00 Ivory Eli CHLAMYDIA/GC, [place] 2020-03-09 16:15:00 Ivory Eli URINALYSIS, AUTOMATED 2020-03-09 16:15:00 Ivory Eli WITH MICROSCOPY MICROSCOPIC EXAMINATION 2020-03-09 16:15:00 Ivory Eli OBSTETRIC PANEL 2020-03-09 14:54:00 Ivory Eli HEMOGLOBIN A1C 2020-03-09 14:54:00 Ivory Eli THYROID STIMULATING 2020-03-09 14:54:00 Ivory Eliton Yazdanism HORMONE T4, FREE 2020-03-09 14:54:00 Ivory Eli US PELVIC TRANSVAGINAL 2020-03-09 14:04:27 Ivory Eli Plan of Care Planned Activity Planned Date Details Comments Source Future Scheduled 2020-07-06 INFLUENZA VACCINE [place] [facility] Test 00:00:00 [code = INFLUENZA VACCINE] Future Scheduled 2013-02-18 Screening for [place] Me thodist Test 00:00:00 malignant neoplasm of cervix (procedure) [code = 841523819] Future Scheduled 2002-02-18 DIABETIC FOOT EXAM [place] [facility] Test 00:00:00 [code = DIABETIC FOOT EXAM] Future Scheduled 2002-02-18 URINE MICROALBUMIN [place] [facility] Test 00:00:00 [code = URINE MICROALBUMIN] Future Scheduled 1992 DIABETIC RETINAL EYE [place] Y[facility]danism Test 00:00:00 EXAM [code = DIABETIC RETINAL EYE EXAM] Encounters Start End Encounter Admission Attending Care Care Encounter Source Date/Time Date/Time Type Type Clinicians Facility Department ID 2020-06-03 2020-06-03 [facility] [id number] [place] 00:00:00 00:00:[address] 2020-05-06 2020-05-06 [facility] [id number] [place] 00:00:00 00:00:00 IVORY [address] 2020-04-08 2020-04-08 [facility] [id number] [place] 00:00:00 00:00:00 IVORY [address] 2020-03-09 2020-03-09 Out[facility] [id number] [place] 00:00:00 00:00:00 IVORY [address] 2020-03-09 2020-03-09 Outpatient [facility] [id number] 905 [place] 00:00:00 00:00:00 IVORY [address] 2019-01-16 2019-01-16 [facility] [id number] 09:15:00 09:15:00 [facility] 2019-01-03 2019-01-03 [facility] [id number] 13:11:00 13:11:00 [facility] 2018-12-31 2018-12-31 [facility] [id number] 10:45:00 10:45:00 [facility] - Care [facility] 2018-11-27 2018-11-27 [facility] [id number] 16:02:00 16:02:00 t [facility] 2018-11-27 2018-11-27 [facility] [id number] 09:59:00 09:59:00 t [facility]ens [facility] - [facility] 2018-11-25 2018-11-25 [facility] [id number] 08:56:00 08:56:00 t [facility] 2018-11-20 2018-11-20 [facility] [id number] 12:00:00 12:00:00 t [facility] 2018-11-20 2018-11-20 [facility] [id number] 10:30:00 10:30:00 t [facility] [place] [facility] 2018-11-11 2018-11-11 [facility] [id number] 15:00:00 15:00:00 t [facility] [place] [facility] 2018-[facility]06 2018-11-06 [facility] [id number] 10:00:00 10:00:00 t [facility] 2018-10-30 2018-10-30 [facility] [id number] 11:00:00 11:00:00 t [facility] 2018-10-23 2018-10-23 [facility] [id number] 15:30:00 15:30:00 t [facility] 2018-10-11 2018-10-11 [facility] [id number] 16:44:00 16:44:00 t [facility] 2018-08-02 2018-08-02 [facility] [id number] 09:30:00 09:30:00 t [facility] 2018-07-17 2018-07-17 [facility] [id number] 15:02:00 15:02:00 t [facility] 2018-07-02 2018-07-02 [facility] [id number] 13:15:00 13:15:00 t [facility] 2018-06-03 2018-06-03 [facility] [id number] 13:45:00 13:45:00 [facility] Results Test Description Test Time Test Comments Results Result Comments Source Maternal serum screen AFP [facility] 2020-06-01 09:08:00 Test Item Value Reference Range Interpretation Comme nts Results: (test code = Report [id number]) Test Results (test code = *Screen Negative* 94574-1) Gest. Age on collection 20.0 weeks date (test code = 87505-1) Gest. age based on (test As provided Rec alculations are not code = 55828-4) recommended when gestational dating by LMP a ndultrasound are within 10 d ays. Maternal age at FREDY (test 28.6 yr code = 19422-6) Maternal race (test code = Other 63887-2) Weight (test code = 191 lbs 69850-0) Insulin Dep Diabetes (test No code = 09258-3) Multiple gestation (test No code = 96636-1) Alpha fetoprotein (test 40.2 ng/mL code = 1834-1) Mom for AFP (test code = 0.84 11099-4) OSBR Risk (test code = 49225 82321-7) AFP interpretation (test Comment Int erpretation: Screen code = 46756-2) NegativeThis result is screen negative for fe marcela OSB. The AFP MoM calcula tedis based on the gestational age provided. MS-AFP can iden tify up to80% of open n eural tube defects. Closed neural tube defects andsome open defects may not be dete cted by this test. This test doesnot screen for Down Syndrome or Trisomy 18. If screening forDown Syndrom e or Trisomy 18 is desired, con tact Genetic CustomerService s to discuss available optio ns. The [employer] e ofObstetricians and Gynecologists r ecommends amniocentesis b e offeredto women age 35 an d older. Comment (test code = Comment Patrizia Farah, Ph.D., [id number]) DABCCDirectorRe ferences: Available Upon Request.Multipl es Of Median Cutoffs For AFP ElevationsSingl eton 2.5 Black 2 .8IDD 2.0 T wins 4.5 Abbreviation DefinitionsIDD - Insulin Dep D iabetesOSBR - Open Spina Bifi da RiskFor further inquiri es contact [facility] at [phone]. MORGAN (test code = MORGAN) Performed at: 01 - [facility] [address] [place], [place] [id number] Director: Ky Roman [facility], Phone: [phone] [place] MethodistGlucose tolerance, 3 [id number] 10:36:00 Test Item Value Reference Range Interpretation Comments Glucose, fasting 84 mg/dL 65-94 (test code = 1558-6) Glucose, 1 hour (test 186 mg/dL 65-179 H code = 1501-6) Glucose, 2 hour (test 164 mg/dL 65-154 H code = 1514-9) Glucose, 3 hour (test 105 mg/dL 65-139 code = 1530-5) Note: (test code = Comment For diagn osis of 9124176) gestational diabetes, at least two value s must meetor exceed normal limits, which i s based on 100 gm of oral glucosechalleng e. MORGAN (test code = MORGAN) Performed at: [facility] [id number] Director: Lino Duarte MD, Phone: [phone] Lab Interpretation Abnormal (test code = 40308-0) [place] MethodistGestational Diabetes [id number] 11:36:00 Test Item Value Reference Interpretation Comments Range Gestational 192 mg/dL 65-139 H According to AD A, a diabetes screen glucose thre shold of (test code = >139 mg/dL afte r 1504-0) 50-gramload alli ntifies approximately 8 0% of women with gestationaldiab etes mellitus, while the sensitivity is further increased toapproximately 90% by a threshold of >129 mg/dL. MORGAN (test code = Performed at: MORGAN) [facility] [id number] Director: Lino Duarte MD, Phone: [phone] Lab Interpretation Abnormal (test code = 21790-3) [place] YazdanismUS Pelvic [id number] 20:10:06LMP: 11/30/2019 LMP -- GA: 14w2d FREDY: 09/05/2020 AUA-- GA: 9w1d FREDY: 10/11/2020 CRL: 2 .39 cm FHR: 177bpm Yolk sac seen: Yes Gestational Sac: good Corpus Luteum: HE sIUP at 9w1d, +FHTMinnie Paulino Chlamydia/GC, [id number] 11:36:00 Test Item Value Reference Range Interpretation Comments Chlamydia trachomatis, Negative Negative [place] (test code = 88083-0) Neisseria gonorrhoeae, Negative Negative [place] (test code = 79205-2) MORGAN (test code = MORGAN) Performed at: [facility] [place], [place] [id number] Director: Sherry Hargrove MD, Phone: [phone] [place] MethodistHemoglobin [id number] 09:36:00 Test Item Value Reference Range Interpretation Comments Hemoglobin A1C 5.4 % 4.8-5.6 (test code = Prediabetes: 5. 7 4548-4) - 6.4 Diabetes: >6.4 Glycemic control for adults with diabetes: <7.0 MORGAN (test code = Performed at: MORGAN) [facility] [address] [id number] Director: Lino Duarte MD, Phone: [phone] [place] MethodistUrinalysis, automated with [id number] 09:36:00 Test Item Value Reference Range Interpretation Comments Specific gravity, 1.014 1.005-1.030 urine (test code = 2965-2) pH, urine (test code 7.5 5.0-7.5 = 5803-2) Color, UA (test code Yellow Yellow = 5778-6) Appearance (test code Clear Clear = 5767-9) WBC esterase, urine Negative Negative (test code = 5799-2) Protein, UA (test Negative Negative/Trace code = 37320-4) Glucose, urine (test Negative Negative code = 2349-9) Ketones, UA (test Negative Negative code = 2514-8) Occult blood, urine Negative Negative (test code = 5794-3) Bilirubin, UA (test Negative Negative code = 5770-3) Urobilinogen, UA 0.2 mg/dL 0.2-1 (test code = 60321-6) Nitrite, UA (test Positive Negative A code = 5802-4) Microscopic See below: Microscopic was examination (test indicated and was code = 95391-5) performed. MORGAN (test code = MORGAN) Performed at: [facility] [address] [id number] Director: Lino Duarte MD, Phone: [phone] Lab Interpretation Abnormal (test code = 57250-3) [place] MethodistMicroscopic [id number] 09:36:00 Test Item Value Reference Range Interpretation Comments WBC, UA (test code = None seen 0- 5 /hpf 5821-4) RBC, UA (test code = 0-2 0- 2 /hpf 81847-9) Epithelial cells (non 0-10 0- 10 /hpf renal) (test code = 5787-7) Mucus, UA (test code = Present Not Estab. 8247-9) Bacteria, UA (test code Few None seen/Few = 5769-5) MORGAN (test code = MORGAN) Performed at: [facility] [id number] Director: Lino Duarte MD, Phone: [phone] [place] MethodistObstetric [id number] 09:36:00 Test Item Value Reference Range Interpretation Comments Hepatitis B surface Negative Negative Ag (test code = 5196-1) RPR (test code = Non Reactive Non Reactive 22006-9) Rubella IgG antibody 1.42 Immune >0.99 (test code = 5334-8) index Non-immune <0.90 Equivocal 0.90 - 0.99 Immune >0.99 ABO grouping (test O code = 883-9) Rh type (test code = Positive Please note: Prior 02190-5) records for thi s patient's ABO / Rh type are notavailable fo r additional verification. Antibody screen (test Negative Negative code = 890-4) HIV AG/AB 4th gen Non Reactive Non Reactive (test code = 61753-5) WBC (test code = 11.8 3.4- 10.8 H 6690-2) x10E3/uL RBC (test code = 4.41 3.77- 5.28 789-8) x10E6/uL HGB (test code = 12.5 g/dL 11.1-15.9 718-7) HCT (test code = 38.3 % 34-46.6 4544-3) MCV (test code = 87 fL 79-97 787-2) MCH (test code = 28.3 pg 26.6-33 785-6) MCHC (test code = 32.6 g/dL 31.5-35.7 786-4) RDW (test code = 13.2 % 11.7-15.4 788-0) Platelet count (test 382 150- 450 code = 777-3) x10E3/uL Neutrophils (test 69 % Not Estab. code = 770-8) Lymphocytes (test 25 % Not Estab. code = 736-9) Monocytes (test code 5 % Not Estab. = 5905-5) Eosinophils (test 0 % Not Estab. code = 713-8) Basophils (test code 0 % Not Estab. = 706-2) Neutrophils, absolute 8.2 1.4- 7.0 H (test code = 751-8) x10E3/uL Lymphocytes, absolute 2.9 0.7- 3.1 (test code = 731-0) x10E3/uL Monocytes, absolute 0.6 0.1- 0.9 (test code = 742-7) x10E3/uL Eosinophils, absolute 0.0 0.0- 0.4 (test code = 711-2) x10E3/uL Basophils, absolute 0.0 0.0- 0.2 (test code = 704-7) x10E3/uL Immature granulocytes 1 % Not Estab. (test code = 11928-3) Immature grans (abs) 0.1 0.0- 0.1 (test code = 03701-1) x10E3/uL MORGAN (test code = MORGAN) Performed at: [address] [id number] Director: Lino Duarte MD, Phone: [phone] Lab Interpretation Abnormal (test code = 38871-5) [place] MethodistThyroid stimulating [id number] 04:35:00 Test Item Value Reference Range Interpretation Comments TSH (test code = 0.749 0.450- 4.500 uIU/mL 51560-0) MORGAN (test code = Performed at: [facility]) [facility] [id number] Director: Lino Duarte MD, Phone: [phone] [place] MethodistT4, [id number] 04:06:00 Test Item Value Reference Range Interpretation Comments T4, free (test code 1.28 ng/dL 0.82-1.77 = 3024-7) MORGAN (test code = Performed at: [facility]) [facility] [id number] [place], [place] [id number] Director: Lino Duarte MD, Phone: [phone] [facility]
[2020-06-18 13:18] LABS: Absolute Lymphocytes (CBC) 2.1 K/uL (0.7-4.9); Basophils % 0.2 % (0-1.3); Hematocrit 32.7 % (36.0-45.0); Lymphocytes % 18.8 % (15.3-44.8); MPV 8.6 fL (7.6-11.3); RBC Red Blood Cell Count 3.91 M/uL (3.86-4.86)
[2020-06-18 13:20] LABS: Protime INR 0.96
[2020-06-18 13:45] LABS: ALT/SGPT 12 U/L (12-78); AST/SGOT 10 U/L (15-37); Albumin 2.7 g/dL (3.4-5.0); Alkaline Phosphatase 93 U/L (45-117); BUN Blood Urea Nitrogen 7 mg/dL (7-18); Bicarbonate 23 mmol/L (21-32); Bilirubin Direct < 0.1 mg/dL (0-0.2); Bilirubin Total 0.2 mg/dL (0.2-1.0); Glucose Level 86 mg/dL (74-106); Magnesium 1.8 mg/dL (1.8-2.4); NT PRO-BNP 90 pg/mL (<125); Potassium 3.5 mmol/L (3.5-5.1); Protein, Total 6.8 g/dL (6.4-8.2); Sodium Level 138 mmol/L (136-145); Troponin (Emerg Dept Use Only) < 0.02 ng/mL (0.0-0.045)
--- NOTE | 2020-06-18 13:58 | RAD REPORT ---
EXAM DESCRIPTION: CT - CTHCSPWOC - 06/18/2020 1:41 pm CLINICAL HISTORY: Trauma, head and neck injury. PAIN COMPARISON: No comparisons TECHNIQUE: Axial 5 mm thick images of the head were obtained. Axial 2 mm thick images of the cervical spine were obtained with sagittal and coronal reconstruction images generated and reviewed. All CT scans are performed using dose optimization technique as appropriate and may include automated exposure control or mA/KV adjustment according to patient size. FINDINGS: CT HEAD WITHOUT CONTRAST: No acute hemorrhage, hydrocephalus or extra-axial collection is identified.No areas of brain edema or midline shift. The paranasal sinuses and mastoids are clear.The calvarium is intact. CT CERVICAL SPINE WITHOUT CONTRAST: No fracture or subluxation.No prevertebral soft tissues swelling is identified. IMPRESSION: No acute intracranial or cervical spine findings.
[2020-06-18 14:44] LABS: Urine Bacteria 20-50 /HPF (<20); Urine Culture Reflex Order REFLEXED; Urine Mucus 1+ /HPF (NONE SEEN); Urine RBC <5 /HPF (NONE SEEN)
[2020-06-18 14:44] LABS: Urine Blood NEGATIVE (NEG); Urine Glucose NEGATIVE (NEG); Urine Protein NEGATIVE (NEG); Urine Specific Gravity 1.015 (1.005-1.030)
--- NOTE | 2020-06-18 14:48 | ER ---
Nurse's Notes [facility] Name: Ana Thomason Age: 30 yrs Sex: Female : 1990 Arrival Date: 06/18/2020 Time: 12:33 Bed 23 Private MD: Diagnosis: Syncope and collapse;Urinary tract infection, site not specified; state Presentation: 06/18 12:34 Acuity: KARINE 2 ls4 12:39 Chief complaint: EMS states: PT WAS IN HOUSE AND LAID DOWN DUE TO A BLOODY NOSE WHILE ls4 CLEANING. WHEN SHE GOT UP SHE WENT OUTSIDE TO SPEAK WITH HER AND PASSED OUT. STATES SHE WAS OUT FOR A FEW SECONDS AND WOKE UP. UPON EMS ARRIVAL PT WAS ALERT AND ORIENTED X 4. REPORTS MILD NECK PAIN. VSS. BGL 118. PT HAS GESTATIONAL DIABETES AND IS 16 WEEKS . Coronavirus screen: Client denies travel out of the [place] in the last 14 days. At this time, the client does not indicate any symptoms associated with coronavirus-19. Ebola Screen: No symptoms or risks identified at this time. Initial Sepsis Screen: Does the patient meet any 2 criteria? No. Patient's initial sepsis screen is negative. Does the patient have a suspected source of infection? No. Patient's initial sepsis screen is negative. Risk Assessment: Do you want to hurt yourself or someone else? Patient reports no desire to harm self or others. Onset of symptoms was June 18, 2020 at 12:00. Care prior to arrival: None. 12:39 Method Of Arrival: EMS: [facility] ls4 Triage Assessment: 12:39 General: Appears in no apparent distress. comfortable, Behavior is calm, cooperative. ls4 Pain: Complains of pain in neck Pain does not radiate. Pain currently is 3 out of 10 on a pain scale. Quality of pain is described as aching. EENT: Reports nasal discharge that is bloody SMALL AMOUNT, EASILY CONTROLLED. Neuro: Level of Consciousness is awake, alert, obeys commands, Oriented to person, place, time, situation, Data Software Engineer are equal bilaterally Moves all extremities. Gait is steady, Speech is normal, Facial symmetry appears normal, Pupils are PERRLA, Intact Reports a syncopal episode Denies weakness blurred vision difficulty swallowing, paresthesias numbness headache photophobia diplopia. Cardiovascular: No deficits noted. Denies chest pain. Respiratory: No deficits noted. Denies cough, shortness of breath labored breathing, pain with respiration, pain with cough, pain with movement, air hunger. GI: No deficits noted. No signs and/or symptoms were reported involving the gastrointestinal system. : No deficits noted. No signs and/or symptoms were reported regarding the genitourinary system. Derm: No deficits noted. No signs and/or symptoms reported regarding the dermatologic system. Musculoskeletal: No deficits noted. No signs and/or symptoms reported regarding the musculoskeletal system. 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 - Social history:: Smoking status: Patient denies any tobacco usage or history of. Screenin:33 Abuse screen: Denies threats or abuse. Denies injuries from another. ls4 12:33 Nutritional screening: No deficits noted. Tuberculosis screening: No symptoms or risk ls4 factors identified. Fall Risk None identified. Assessment: 12:33 Neuro: No deficits noted. Neuro: Reports a syncopal episode Denies weakness blurred ls4 vision difficulty swallowing, paresthesias numbness headache photophobia diplopia. Cardiovascular: Rhythm is sinus rhythm. Respiratory: No deficits noted. GI: No deficits noted. : No deficits noted. 12:36 Neuro: Level of Consciousness is Oriented to person, place, time, situation, Data Software Engineer are ls4 equal bilaterally Moves all extremities. Gait is steady, Speech is normal, Facial symmetry appears normal, Pupils are PERRLA, Intact. 13:30 Reassessment: Patient appears in no apparent distress at this time. Patient and/or ls4 family updated on plan of care and expected duration. Pain level reassessed. Patient is alert, oriented x 3, equal unlabored respirations, skin warm/dry/pink. 14:22 Reassessment: Patient appears in no apparent distress at this time. Patient and/or ls4 family updated on plan of care and expected duration. Pain level reassessed. Patient is alert, oriented x 3, equal unlabored respirations, skin warm/dry/pink. Vital Signs: 12:39 BP 102 / 72; Pulse 99; Resp 16; Temp 97.8; Pulse Ox 99% on R/A; Weight 89.81 kg; Height ls4 5 ft. 0 in. (152.40 cm); Pain 3/10; 13:30 BP 104 / 64 Supine; Pulse 89; Resp 16; Pulse Ox 99% on R/A; Pain 0/10; ls4 13:33 BP 115 / 70 Sitting; Pulse 90; Resp 16; Pulse Ox 99% on R/A; Pain 0/10; ls4 13:36 BP 116 / 70 Standing; Pulse 90; Resp 16; Pulse Ox 99% on R/A; ls4 12:39 Body Mass Index 38.67 (89.81 kg, 152.40 cm) ls4 Vitals: 14:11 Heart Tones 158. ls4 ED Course: 12:33 Patient arrived in ED. ls4 12:33 Patient has correct armband on for positive identification. Bed in low position. Call ls4 light in reach. Side rails up X 1. 12:33 security monitor on. Pulse ox on. NIBP on. Verbal reassurance given. ls4 12:33 Inserted saline lock: 20 gauge in right antecubital area, using aseptic technique. ls4 Blood collected. 12:34 Triage completed. ls4 12:41 Allie Senior FNP-C [facility]. kb 12:41 Maik Toledo MD is Attending Physician. kb 12:45 Arm band placed on. ls4 12:59 No provider procedures requiring assistance completed. ls4 12:59 Initial lab(s) drawn, by in, sent to lab. EKG done, by ED staff, reviewed by Maik Toledo MD. Patient maintains SpO2 saturation greater than 95% on room air. 13:42 CT Head C Spine In Process Unspecified. EDMS 13:55 Nimisha Hurtado, RN is Primary Nurse. ls4 13:55 CBC with Diff Sent. ls4 13:55 Basic Metabolic Panel Sent. ls4 14:58 IV discontinued, intact, bleeding controlled, No redness/swelling at site. ls4 Administered Medications: 15:00 Drug: Macrobid 100 mg Route: PO; ls4 15:20 Follow up: Response: No adverse reaction; Marked relief of symptoms ls4 Point of Care Testing: Blood Glucose: 14:01 Blood Glucose: 118 mg/dL; ls4 Ranges: Outcome: 14:47 Discharge ordered by MD. booker 15:10 Discharged to L and D ls4 15:10 Condition: good ls4 15:10 Discharge instructions given to patient, Instructed on discharge instructions, follow up and referral plans. medication usage, Demonstrated understanding of instructions, follow-up care, medications, Prescriptions given X 1. 15:10 Patient left the ED. ls4 Signatures: Dispatcher [employer] EDWI Allie Senior, MANAGER CALL CENTER-C LUCA-Nimisha Miranda RN RN ls4 Corrections: (The following items were deleted from the chart) 17:19 15:29 Patient left the ED. ls4 ls4
--- NOTE | 2020-06-18 14:48 | EDPHYS ---
Physician Documentation [facility] Name: Ana Thomason Age: 30 yrs Sex: Female : 1990 Arrival Date: 06/18/2020 Time: 12:33 Bed 23 Private MD: ED Physician Maik Toledo HPI: 06/18 15:11 This 30 yrs old Female presents to ER via EMS with complaints of Syncope. kb 15:12 The patient has experienced syncope, collapsed. Onset: The symptoms/episode kb began/occurred just prior to arrival. Duration: This was a single episode, lasted a few seconds. Context: the episode(s) was witnessed, by family, . Associated injury: The patient did not suffer any apparent associated injury. Associated signs and symptoms: Pertinent positives: 2nd trimester. Current symptoms: Currently, the patient is not experiencing any symptoms, the patient feels back to baseline, no decreased level of consciousness, no confusion, no dysphasia, no headache, no paralysis, no visual changes. The patient has not experienced similar symptoms in the past. The patient has not recently seen a physician. Pt reports she has been cleaning at home, was in the middle of mopping, stepped outside and passed out. States she fell against the house and the water hose. Has no pain or other complaints at this time. Pt is 24 weeks . 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 - Social history:: Smoking status: Patient denies any tobacco usage or history of. ROS: 15:00 Constitutional: Negative for fever, chills, and weight loss, Eyes: Negative for injury, kb pain, redness, and discharge, ENT: Negative for injury, pain, and discharge, Neck: Negative for injury, pain, and swelling, Cardiovascular: Negative for chest pain, palpitations, and edema, Respiratory: Negative for shortness of breath, cough, wheezing, and pleuritic chest pain, Abdomen/GI: Negative for abdominal pain, nausea, vomiting, diarrhea, and constipation, Back: Negative for injury and pain, MS/Extremity: Negative for injury and deformity, Skin: Negative for injury, rash, and discoloration. 15:09 Neuro: Positive for syncope. kb Exam: 15:01 Constitutional: This is a well developed, well nourished patient who is awake, alert, kb and in no acute distress. Head/Face: Normocephalic, atraumatic. Eyes: Pupils equal round and reactive to light, extra-ocular motions intact. Lids and lashes normal. Conjunctiva and sclera are non-icteric and not injected. Cornea within normal limits. Periorbital areas with no swelling, redness, or edema. ENT: Nares patent. No nasal discharge, no septal abnormalities noted. Tympanic membranes are normal and external auditory canals are clear. Oropharynx with no redness, swelling, or masses, exudates, or evidence of obstruction, uvula midline. Mucous membranes moist. Neck: Trachea midline, no thyromegaly or masses palpated, and no cervical lymphadenopathy. Supple, full range of motion without nuchal rigidity, or vertebral point tenderness. No Meningismus. Chest/axilla: Normal chest wall appearance and motion. Nontender with no deformity. No lesions are appreciated. Cardiovascular: Regular rate and rhythm with a normal S1 and S2. No gallops, murmurs, or rubs. Normal PMI, no JVD. No pulse deficits. Respiratory: Lungs have equal breath sounds bilaterally, clear to auscultation and percussion. No rales, rhonchi or wheezes noted. No increased work of breathing, no retractions or nasal flaring. Abdomen/GI: Soft, non-tender, with normal bowel sounds. No distension or tympany. No guarding or rebound. No evidence of tenderness throughout. Back: No spinal tenderness. No costovertebral tenderness. Full range of motion. Skin: Warm, dry with normal turgor. Normal color with no rashes, no lesions, and no evidence of cellulitis. MS/ Extremity: Pulses equal, no cyanosis. Neurovascular intact. Full, normal range of motion. Neuro: Awake and alert, GCS 15, oriented to person, place, time, and situation. Cranial nerves II-XII grossly intact. Motor strength 5/5 in all extremities. Sensory grossly intact. Cerebellar exam normal. Normal gait. Vital Signs: 12:39 BP 102 / 72; Pulse 99; Resp 16; Temp 97.8; Pulse Ox 99% on R/A; Weight 89.81 kg; Height ls4 5 ft. 0 in. (152.40 cm); Pain 3/10; 13:30 BP 104 / 64 Supine; Pulse 89; Resp 16; Pulse Ox 99% on R/A; Pain 0/10; ls4 13:33 BP 115 / 70 Sitting; Pulse 90; Resp 16; Pulse Ox 99% on R/A; Pain 0/10; ls4 13:36 BP 116 / 70 Standing; Pulse 90; Resp 16; Pulse Ox 99% on R/A; ls4 12:39 Body Mass Index 38.67 (89.81 kg, 152.40 cm) ls4 MDM: 12:42 Patient medically screened. 14:46 Data reviewed: vital signs, nurses notes. Data interpreted: Pulse oximetry: on room air kb is 99 %. Interpretation: normal. Counseling: I had a detailed discussion with the patient and/or guardian regarding: the historical points, exam findings, and any diagnostic results supporting the discharge/admit diagnosis, lab results, radiology results, the need for outpatient follow up, an OB/Gyne specialist, to return to the emergency department if symptoms worsen or persist or if there are any questions or concerns that arise at home. 14:46 ED course: Pt to go to L\T\D for clearance prior to going home. PT has no complaints at this time. States she feels fine. . 06/18 12:39 Order name: Basic Metabolic Panel [facility] 06/18 12:39 Order name: CBC with Diff [facility] 06/18 12:39 Order name: LFT's; Complete Time: 13:49 [facility] 06/18 12:39 Order name: Magnesium; Complete Time: 13:49 [facility] 06/18 12:39 Order name: NT PRO-BNP; Complete Time: 13:49 [facility] 06/18 12:39 Order name: PT-INR; Complete Time: 13:28 [facility] 06/18 12:39 Order name: Troponin (emerg Dept Use Only); Complete Time: 13:49 [facility] 06/18 12:40 Order name: Basic Metabolic Panel; Complete Time: 13:49 EDMS 08/14 12:40 Order name: CBC with Automated Diff; Complete Time: 13:28 [facility] 06/18 12:50 Order name: CT Head C Spine; Complete Time: 13:59 kb 06/18 14:25 Order name: Urine Microscopic Only; Complete Time: 14:46 ls4 06/18 14:30 Order name: Urine Dipstick--Ancillary (enter results); Complete Time: 14:46 eb 06/18 14:45 Order name: Urine Culture [facility] 06/18 12:39 Order name: EKG; Complete Time: 12:40 ls4 06/18 12:39 Order name: Cardiac monitoring; Complete Time: 14:11 ls4 06/18 12:39 Order name: EKG - Nurse/Tech; Complete Time: 14:11 ls4 06/18 12:39 Order name: IV Saline Lock; Complete Time: 14:11 ls4 06/18 12:39 Order name: Labs collected and sent; Complete Time: 13:55 4 06/18 12:39 Order name: O2 Per Protocol; Complete Time: 12:46 4 06/18 12:39 Order name: O2 Sat Monitoring; Complete Time: 12:46 4 06/18 12:51 Order name: FHT's; Complete Time: 14:11 kb 06/18 12:51 Order name: Urine Dipstick-Ancillary (obtain specimen); Complete Time: 14:11 kb Administered Medications: 15:00 Drug: Macrobid 100 mg Route: PO; ls4 15:20 Follow up: Response: No adverse reaction; Marked relief of symptoms ls4 Point of Care Testing: Blood Glucose: 14:01 Blood Glucose: 118 mg/dL; ls4 Ranges: Critical Glucose Levels:Adult <50 mg/dl or >400 mg/dl <40 mg/dl or >180 mg/dl Disposition: 06/18/20 14:47 Discharged to Home. Impression: Syncope and collapse, Urinary tract infection, site not specified, state. - Condition is Stable. - Discharge Instructions: Syncope, [id number], and Urinary Tract Infection. - Prescriptions for Macrobid 100 mg Oral Capsule - take 1 capsule by ORAL route every 12 hours for 3 days; 6 capsule. - Medication Reconciliation Form, Thank You Letter, Antibiotic Education, Prescription Opioid Use form. - Follow up: Emergency Department; When: As needed; Reason: Worsening of condition. Follow up: Private Physician; When: 2 - 3 days; Reason: Recheck today's complaints, Continuance of care, Re-evaluation by your physician. Addendum: 06/21/2020 08:21 Co-signature as Attending Physician, Maik Toledo MD I agree with the assessment and k dr plan of care. Signatures: Dispatcher [employer] EDMS Allie Senior, BUTTON GRADER-C BUTTON GRADER-CkMaik Castaneda MD MD kdr Nimisha Hurtado, RN RN ls4 Corrections: (The following items were deleted from the chart) 06/18 14:50 14:47 06/18/2020 14:47 Discharged to Home. Impression: Syncope and collapse. Condition kb is Stable. Forms are Medication Reconciliation Form, Thank You Letter, Antibiotic Education, Prescription Opioid Use. Follow up: Emergency Department; When: As needed; Reason: Worsening of condition. Follow up: Private Physician; When: 2 - 3 days; Reason: Recheck today's complaints, Continuance of care, Re-evaluation by your physician. kb 15:03 15:00 Constitutional: Negative for fever, chills, and weight loss, Cardiovascular: kb Negative for chest pain, palpitations, and edema, Respiratory: Negative for shortness of breath, cough, wheezing, and pleuritic chest pain, Abdomen/GI: Negative for abdominal pain, nausea, vomiting, diarrhea, and constipation, Back: Negative for injury and pain, MS/Extremity: Negative for injury and deformity, Skin: Negative for injury, rash, and discoloration, kb 15:03 15:00 Neuro: Positive for syncope, Negative for altered mental status, dizziness, gait kb disturbance, headache, hearing loss, loss of consciousness, numbness, seizure activity, speech changes, near syncope, tingling, tinnitus, tremor, visual changes, weakness, kb 15: 15:00 Constitutional: Negative for fever, chills, and weight loss, Eyes: Negative for kb injury, pain, redness, and discharge, ENT: Negative for injury, pain, and discharge, Neck: Negative for injury, pain, and swelling, Cardiovascular: Negative for chest pain, palpitations, and edema, Respiratory: Negative for shortness of breath, cough, wheezing, and pleuritic chest pain, Abdomen/GI: Negative for abdominal pain, nausea, vomiting, diarrhea, and constipation, Back: Negative for injury and pain, MS/Extremity: Negative for injury and deformity, Skin: Negative for injury, rash, and discoloration, Neuro: Negative for headache, weakness, numbness, tingling, and seizure, kb 15:29 14:50 06/18/2020 14:47 Discharged to Home. Impression: Syncope and collapse; Urinary ls4 tract infection, site not specified; state. Condition is Stable. Discharge Instructions: Syncope, [id number]. Forms are Medication Reconciliation Form, Thank You Letter, Antibiotic Education, Prescription Opioid Use. Follow up: Emergency Department; When: As needed; Reason: Worsening of condition. Follow up: Private Physician; When: 2 - 3 days; Reason: Recheck today's complaints, Continuance of care, Re-evaluation by your physician. kb
[2020-06-18] MEDS ORDERED: NITROFURAN MACRO 100 MG CAP PO ONE (15:14)
[2020-06-18 15:38] VITALS: TEMP 97.8; O2SAT 99
[2020-06-18 15:51] VITALS: BP 116/70
--- NOTE | 2020-06-19 08:11 | EKG ---
Test Date: 2020-06-18 Test Time: 13:13:16 Toll Gate Keeper: ELSY MEASUREMENT RESULTS: Intervals: Rate: 78 ME: 144 QRSD: 80 QT: 354 QTc: 403 [place]: P: 21 ME: 144 QRS: 40 T: 13 INTERPRETIVE STATEMENTS: Normal sinus rhythm Low voltage QRS Borderline ECG No previous ECG available for comparison Electronically Signed On 06-19-20 08:09:31 CDT by David Osorio
== END 2020-06-18 15:29 | disposition home or self-care (01) ==
LOC: ER 12:24
DX: O23.42 Unspecified infection of urinary tract in pregnancy, second trimester (principal); R55 Syncope and collapse
CPT/HCPCS: 36415; 70450; 72125; 80048; 80076; 81003; 81015; 83735; 83880; 84484; 85025; 85610; 87086; 87088; 93005; 99285